=== PATIENT | male | born 1960 | race Caucasian/White ===

== ENCOUNTER 2017-12-03 17:22 | Emergency (ER) | payer MEDICARE, MEDICAID ==
[2017-12-03] MEDS ORDERED: Lidocaine Viscous Sol 2% 15 ml UD Cup ONE (17:44)
[2017-12-03] MEDS ORDERED: Pantoprazole 40 MG VIAL ONE (17:44)
[2017-12-03] MEDS ORDERED: Mag-Al 1200 mg/1200 mg/30 ML UDCUP ONE (17:44)
[2017-12-03 18:24] LABS: #Basophils 0.1 thou/uL (0.0-0.2); #Eosinphils 0.1 thou/uL (0.0-0.7); #Lymphocytes 2.9 thou/uL (1.20-3.40); #Neutrophils 5.2 thou/uL (1.40-6.50); %Basophils 1.2 % (0.0-1.0); %Eosinophils 1.4 % (0.0-10.0); %Lymphocytes 30.8 % (21.0-51.0); %Monocytes 10.8 % (0.0-10.0); %Neutrophils 55.8 % (42.0-75.0); Hemoglobin 17.1 g/dL (14.0-18.0); Mean Corpuscular HGB CONC 33.2 g/dL (32.0-36.0); Mean Corpuscular Hemoglobin 31.6 pg (27.0-31.0); Mean Corpuscular Volume 95.1 fl (80.0-94.0); Mean Platelet Volume 9.1 fL (7.4-10.4); Platelet Count 174 thou/uL (130-400); RBC Distribution Width 12.8 % (11.5-14.5); Red Blood Cell (RBC) Count 5.42 mill/uL (4.70-6.10); White Blood Cell (WBC) Count 9.4 thou/uL (4.8-10.8)
--- NOTE | 2017-12-03 18:38 | RAD ---
PORTABLE UPRIGHT FRONTAL CHEST RADIOGRAPH 12/03/17 COMPARISON: 11/25/14 HISTORY: Burning in epigastric region, headache, chest pain. FINDINGS: No pneumothorax, pleural fluid, focal consolidation, or alveolar edema. Mild diffuse mild nonspecific interstitial prominence noted. IMPRESSION: No acute findings. POS: [facility]
[2017-12-03 18:41] LABS: CKMB 1.1 ng/mL (0-6.6); Troponin I 0.021 ng/mL (< 0.028)
[2017-12-03 18:46] LABS: ALT (SGPT) 32 U/L (8-55); AST (SGOT) 17 U/L (5-34); Albumin 4.3 g/dL (3.5-5.0); Alkaline Phosphatase 74 U/L (40-150); Anion Gap 16 mmol/L (10-20); BUN (Urea Nitrogen) 11 mg/dL (8.4-25.7); Bilirubin, Total 0.4 mg/dL (0.2-1.2); CK (CPK) 100 U/L (30-200); Calc. Creatinine Clearance 0 mL/min (70-130); Calcium 9.5 mg/dL (7.8-10.44); Carbon Dioxide 24 mmol/L (22-29); Chloride 106 mmol/L (98-107); Estimated GFR-MDRD Greater than 90; Glucose 125 mg/dL (70-105); Lipase 13 U/L (8-78); Potassium 4.1 mmol/L (3.5-5.1); Protein, Total 7.3 g/dL (6.0-8.3); Sodium 142 mmol/L (136-145)
== END 2017-12-03 19:09 | disposition home or self-care (01) ==
LOC: ERS 17:22
DX: R10.13 Epigastric pain (principal); E78.5 Hyperlipidemia, unspecified; I25.2 Old myocardial infarction; I10 Essential (primary) hypertension; F17.210 Nicotine dependence, cigarettes, uncomplicated; Z86.73 Personal history of transient ischemic attack (TIA), and cerebral infarction without residual deficits; Z79.899 Other long term (current) drug therapy
CPT/HCPCS: 71045; 80053; 82550; 82553; 83690; 84484; 85025; 93005; C9113

== ENCOUNTER 2017-12-03 20:24 | Emergency (ER) | payer MEDICARE, MEDICAID ==
[2017-12-03] MEDS ORDERED: Lidocaine Viscous Sol 2% 15 ml UD Cup ONE (20:57)
[2017-12-03] MEDS ORDERED: Metoclopramide HCl 10 MG TAB ONE (20:57)
[2017-12-03] MEDS ORDERED: Mag-Al 1200 mg/1200 mg/30 ML UDCUP ONE (20:57)
== END 2017-12-03 22:28 | disposition home or self-care (01) ==
LOC: ERS 20:24
DX: R10.13 Epigastric pain (principal); I10 Essential (primary) hypertension; E78.5 Hyperlipidemia, unspecified; I25.2 Old myocardial infarction; F17.210 Nicotine dependence, cigarettes, uncomplicated; Z86.73 Personal history of transient ischemic attack (TIA), and cerebral infarction without residual deficits; Z79.899 Other long term (current) drug therapy
CPT/HCPCS: 71045; 80053; 82550; 82553; 83690; 84484; 85025; 93005; 96374; C9113

== ENCOUNTER 2018-02-12 04:53 | Inpatient (IN) | payer MEDICARE, MEDICAID ==
[2018-02-12 05:24] LABS: #Basophils 0.1 thou/uL (0.0-0.2); #Eosinphils 0.1 thou/uL (0.0-0.7); #Lymphocytes 2.3 thou/uL (1.20-3.40); #Monocytes 0.9 thou/uL (0.11-0.59); #Neutrophils 5.6 thou/uL (1.40-6.50); %Basophils 0.9 % (0.0-1.0); %Lymphocytes 25.5 % (21.0-51.0); %Monocytes 10.2 % (0.0-10.0); %Neutrophils 62.5 % (42.0-75.0); Hemoglobin 14.7 g/dL (14.0-18.0); Mean Corpuscular HGB CONC 34.5 g/dL (32.0-36.0); Mean Corpuscular Hemoglobin 32.4 pg (27.0-31.0); Mean Corpuscular Volume 93.8 fL (78.0-98.0); Mean Platelet Volume 8.7 fL (7.4-10.4); Platelet Count 183 thou/uL (130-400); RBC Distribution Width 13.4 % (11.5-14.5); Red Blood Cell (RBC) Count 4.52 mill/uL (4.70-6.10)
[2018-02-12 05:36] LABS: ALT (SGPT) 21 U/L (8-55); AST (SGOT) 13 U/L (5-34); Albumin 3.8 g/dL (3.5-5.0); Alkaline Phosphatase 66 U/L (40-150); Anion Gap 13 mmol/L (10-20); BUN (Urea Nitrogen) 12 mg/dL (8.4-25.7); Bilirubin, Total 0.3 mg/dL (0.2-1.2); Calc. Creatinine Clearance 0 mL/min (70-130); Carbon Dioxide 24 mmol/L (22-29); Chloride 107 mmol/L (98-107); Estimated GFR-MDRD Greater than 90; Globulin 2.8 g/dL (2.4-3.5); Glucose 144 mg/dL (70-105); Lipase 14 U/L (8-78); Potassium 3.5 mmol/L (3.5-5.1); Protein, Total 6.6 g/dL (6.0-8.3); Sodium 140 mmol/L (136-145)
[2018-02-12 05:41] LABS: CKMB 0.7 ng/mL (0-6.6); Troponin I 0.015 ng/mL (< 0.028)
[2018-02-12] MEDS ORDERED: Acetaminophen 325 MG TAB PO PRN (07:56)
[2018-02-12 08:53] LABS: Troponin I 0.018 ng/mL (< 0.028)
--- NOTE | 2018-02-12 09:10 | CT ---
PRELIMINARY REPORT/[facility]/EMERGENTY AFTER-HOURS PROCEDURE CT Head Without Intravenous Contrast CLINICAL HISTORY: 57 years old, male; Signs and symptoms; Dizziness; Patient HX: Ems reports dizziness and SHORTNESS OF BREATH that woke pt up this am. Pt currently in nad, rr even and unlabored. TECHNIQUE: Axial computed tomography images of the head/brain without intravenous contrast. COMPARISON: No relevant prior studies available. FINDINGS: Brain: No intracranial hemorrhage. No evidence of acute infarction. No mass effect or midline shift. Ventricles: Normal for age. Bones/joints: No acute fracture. Soft tissues: Normal. Vasculature: Atherosclerosis. Sinuses: Normal as visualized. No acute sinusitis. Mastoid air cells: Normal as visualized. No mastoid effusion. IMPRESSION: No acute intracranial abnormality. Thank you for allowing us to participate in the care of your patient. Dictated and Authenticated by: Adolfo Mccabe MD 02/12/2018 6:01 AM Central Time ([place] & [place]) FINAL REPORT CT HEAD: No acute intracranial abnormality. I am in agreement with the preliminary report. POS: [facility]
--- NOTE | 2018-02-12 09:21 | RAD ---
PORTABLE CHEST: HISTORY: Dizziness. Shortness of breath. FINDINGS: Lungs are clear. Heart and mediastinum unremarkable. No acute abnormality. POS: [facility]
[2018-02-12] MEDS ORDERED: Ondansetron HCl/PF 4 MG/2 ML Vial IVP PRN (10:01)
[2018-02-12] MEDS ORDERED: Ondansetron ODT 4 MG TAB SL PRN (10:01)
[2018-02-12 10:04] VITALS: BMI 31.9
[2018-02-12 12:49] LABS: Troponin I 0.012 ng/mL (< 0.028)
--- NOTE | 2018-02-12 13:12 | HP ---
CHIEF COMPLAINT: Lightheadedness. HISTORY OF PRESENT ILLNESS: The patient is a 57-year-old male, who presented to the Emergency Depart [facility]. The patient reports that he was in generally good health until about 3:00 in the morning on day of admission. The patient reports that he awakened from sleep, feeling very lightheaded and sh aky. He got up on the side of the bed and rested for about 15 minutes. He had some initial shortnes s of breath that he states generally resolved with taking several deep breaths. When his overall sym ptoms did not resolve within 15 minutes, he called an ambulance. The patient reports that with time his lightheadedness and dizziness have improved, but he still feels weak. He feels less shaky. Stat es he has had this before, but it has been somewhere between 2-4 years ago. He states that if he act ually goes out into the heat and does much that he will blackout. He denied any chest pain or palpit ations. REVIEW OF SYSTEMS: The patient reports that he sleeps too much. States that he sleeps 8 hours at [facility], gets up in the morning and after a couple hours of being up he cannot keep his eyes open anymore and asked to go to bed and sleeps most of the day. Other than that, a 10-system review is unremarka ble. The patient does report that he has poor vision, poor hearing, and poor memory, but these are c hronic for him. PAST MEDICAL HISTORY: The patient reports a history of "borderline" diabetes. He also states that zarina liang was told he had hypertension and was given medications in the past, but his blood pressure got too low and he felt lightheaded, so he decided to stop them. Of note, the patient has been admitted here previously with some leg weakness concerning for the possibility of a TIA. He had a stress test don e in 2014, which revealed no evidence of ischemia, but he did have global hypokinesis with an EF of 4 3%. He also had workup for lower extremity vascular disease and he did have some minimal atheroscler otic disease. He had negative carotid Dopplers. PAST SURGICAL HISTORY: None. FAMILY HISTORY: The patient reports his father a week after having a 4-mustafa accident, but he is not sure why. States his father did have hypertension. His mother with coronary disease an d diabetes. He also had a sister that he reports secondary to an irregular heartbeat. SOCIAL HISTORY: The patient smokes 3 cigarettes per day, down from one half pack per day. He denies alcohol or drugs. He is single. He reports that his surrogate decision maker would be a cousin in [place], although he does not recall her last name. He will try to get that information for us. Zarina liang is a DNR. He is on disability and he relates his disability claim to poor hearing, poor vision, po or memory. ALLERGIES: None. MEDICATIONS: None. PHYSICAL EXAMINATION: VITAL SIGNS: BP 112/73, pulse 76, respirations 17, temperature is 98.6, and O2 sats 95% on room air. GENERAL APPEARANCE: Age appropriate male in no distress. He is awake, alert, oriented, pleasant, co operative, no distress. HEENT: PERRL. No OP lesions. NECK: Supple and symmetric. CARDIOVASCULAR: Regular rate and rhythm without murmurs, gallops or rubs. LUNGS: Reveal bibasilar rales, which are fine and good air exchange otherwise. ABDOMEN: Soft, nontender, nondistended, positive bowel sounds, no masses, no organomegaly. EXTREMITIES: Warm and dry with no evidence of peripheral edema. NEUROLOGIC: The patient appears to be grossly intact with no focal deficits. SKIN: Reveals no lesions. Chest x-ray appears generally clear with some mild chronic changes noted. LABORATORY DATA: Head CT is reportedly negative. EKG shows some anteroseptal evidence of old infarc t. There is some poor R-wave progression through the V leads and some minor evidence of ST segment elevation from V2 through V5, although not diagnostic. White count is 9.0, hemoglobin 14.7, platelet s 183. Sodium 140, potassium 3.5, chloride 107, CO2 of 24, anion gap 13, BUN 12, creatinine 0.83, gl ucose 144, calcium 9.0. LFTs normal. BNP 1.92, troponin 0.015. Lipase 14. IMPRESSION AND PLAN: 1. Lightheadedness. The etiology of this presently is unclear. It seems to be getting better. Cer tainly cardiac would be a concern as well as a something neurological. Of note, this patient has bee n seen in the emergency room for prior times since 2014 with complaints of dizziness or lightheadedne ss. He did have the workup in 2015 for leg numbness and potential transient ischemic attack, which t case he had no significant findings. 2. Cardiac: The patient has an abnormal EKG. He did have a negative stress test in 11/2014, but he had a reduced ejection fraction and global hypokinesis at that time based on his stress test. We wi ll place the patient in observation on telemetry. We will get serial cardiac enzymes. We will obtai n an echocardiogram. This case was discussed with Dr. Plaza, the ER physician with his recommenda tion that we keep the patient for further evaluation. We will consult Cardiology. 3. History of hypertension. We will continue to monitor the patient's vital signs in the hospital. They do not appear to be substantially bad at this point. 4. History of hyperlipidemia. We will check a fasting lipid panel in the morning. 5. Hyperglycemia. The patient's blood sugar was very slightly high, although it is not clear if thi s was fasting or nonfasting. We will check another fasting glucose in the morning.
[2018-02-12] MEDS ORDERED: Communication Order-Pharmacy FS SCH (21:00)
--- NOTE | 2018-02-13 00:12 | CON ---
DATE OF CONSULTATION: 02/12/2018 HISTORY: Reg Méndez is a 57-year-old white male who has been evaluated by Dr. Guerrero in the past. In 02/2011, he presented with chest discomfort. Echocardiogram revealed ejection fraction of 40% -45%. Cardiolite revealed no evidence of ischemia with an ejection fraction of 44%. He was again seen by Dr. Guerrero in 11/2014. Again, this was for chest discomfort that was present for 3 straight days. Pain was definitely pleuritic in nature. He again underwent Cardiolite testing , which did not reveal any evidence of ischemia and ejection fraction was 43% carvedilol, AMY i nhibitor, aspirin and medication. Apparently, he never took those. He did present to the emergency room on 12/03/2017, complaining of intense burning in his chest and e pigastric area. Cardiac enzymes were unremarkable. An EKG was normal. He was given by his account a green slider twice and he stated that the intense burning continued for 3 hours, then abated. He denies any recurrence of chest discomfort. Then, awoke at 3:00 a.m. this morning somewhat lighthe aded with difficulty breathing. He denied any chest discomfort. He was mildly diaphoretic and he fe lt so bad. He decided to come to the emergency room. There has been a dramatic change in his EKG. PAST MEDICAL HISTORY: Mild cardiomyopathy. OPERATIONS: None. MEDICATIONS: [place] and prednisone. ALLERGIES: None. SOCIAL HISTORY: He continued to smoke one half pack per day. However, he recently has cut back to 3 cigarettes per day. He denies any alcohol. FAMILY HISTORY: Mother had heart disease. REVIEW OF SYSTEMS: Twelve-point review of systems is otherwise unremarkable. PHYSICAL EXAMINATION: VITAL SIGNS: Blood pressure 116/74, pulse of 86. HEENT: PERRL. NECK: Supple. CHEST: Clear. CARDIAC: S1, S2 normal, without any S3, S4 or murmurs. ABDOMEN: Normal bowel sounds, without tenderness, organomegaly. EXTREMITIES: Revealed no clubbing, cyanosis. There was trace pretibial edema. NEUROLOGIC: Grossly intact. SKIN: Warm and dry. LABORATORY DATA: EKG reveals anteroseptal infarction with Q-waves present in V1 through V4 with inve rted T waves. These changes are new from EKG in November. Cardiac enzymes were unremarkable. White cou nt 9000, hemoglobin 14.7, hematocrit 42.4, platelets 183,000. Sodium 140, potassium 3.5, chloride 10 7, carbon dioxide 24, BUN 12, creatinine 0.83. BNP 192.0. IMPRESSION: 1. Anteroseptal myocardial infarction sometime between 12/03/2017 and now. 2. Lightheadedness and shortness of breath. This certainly may have been an episode of PND. 3. History of hypertension; however, blood pressure is low here. profile will be obtained in the morning. PLAN: Situation was discussed with the patient. With his dramatic changes in his EKG, it was recomm ended he undergo cardiac catheterization. Risks of catheterization were discussed with the patient i ncluding , myocardial infarction, dye reaction, vascular injury, CVA, transfusion, limb loss, re nal loss, etc. Risks of stent placement were discussed including , myocardial infarction, emerg ent CABG, restenosis, stent thrombosis, vessel perforation, etc. He has had history of bleeding stom ach ulcer and gastrointestinal bleeding 2-3 years ago and, therefore, it was felt that a bare metal s tent would be his best option. However, he is very hesitant and I am not certain that he will pursue further evaluation. We also discussed how he wishes to be DNR and if we do go to the cardiac Cath l ab that should be rescinded. He will make decisions now regarding how to proceed.
[2018-02-13 05:02] LABS: #Eosinphils 0.1 thou/uL (0.0-0.7); #Lymphocytes 3.1 thou/uL (1.20-3.40); #Monocytes 0.9 thou/uL (0.11-0.59); #Neutrophils 4.6 thou/uL (1.40-6.50); %Basophils 0.5 % (0.0-1.0); %Eosinophils 1.3 % (0.0-10.0); %Lymphocytes 35.2 % (21.0-51.0); %Monocytes 10.4 % (0.0-10.0); %Neutrophils 52.6 % (42.0-75.0); Hemoglobin 14.2 g/dL (14.0-18.0); Mean Corpuscular HGB CONC 32.6 g/dL (32.0-36.0); Mean Corpuscular Hemoglobin 30.7 pg (27.0-31.0); Mean Corpuscular Volume 94.1 fL (78.0-98.0); Mean Platelet Volume 9.2 fL (7.4-10.4); Platelet Count 179 thou/uL (130-400); RBC Distribution Width 13.3 % (11.5-14.5); Red Blood Cell (RBC) Count 4.61 mill/uL (4.70-6.10); White Blood Cell (WBC) Count 8.8 thou/uL (4.8-10.8)
[2018-02-13 05:06] LABS: Anion Gap 12 mmol/L (10-20); BUN (Urea Nitrogen) 11 mg/dL (8.4-25.7); Calc. Creatinine Clearance 154 mL/min (70-130); Calcium 8.6 mg/dL (7.8-10.44); Carbon Dioxide 26 mmol/L (22-29); Cardiac Risk 5.4 (Less than 4.5); Chloride 106 mmol/L (98-107); Cholesterol 163 mg/dl (< 200 Desired); Estimated GFR-MDRD Greater than 90; Glucose 133 mg/dL (70-105); HDL Cholesterol 30 mg/dL (>60 Neg Risk); LDL Cholesterol, Calculated 104 mg/dL; Potassium 3.7 mmol/L (3.5-5.1); Sodium 140 mmol/L (136-145); Triglycerides 144 mg/dL (Less than 150)
[2018-02-13] MEDS: Sodium Chloride 0.9% 1,000 ML IV SCH ×2 (05:12→16:25)
--- NOTE | 2018-02-13 09:33 | PDOC.PN ---
- Subjective Encounter Start Date: 02/13/18 Encounter Start Time: 09:32 No new symptoms. Had declined cath. Wants to consult with his family in [place]. - Objective Resuscitation Status: Resuscitation Status DNR:Do Not Resuscitate Vital Signs & Weight: Vital Signs (12 hours) Temp Pulse Resp BP Pulse Ox 02/13/18 08:00 98.3 F 82 14 118/77 96 02/13/18 04:30 98.2 F 85 16 114/73 96 Weight Weight 249 lb 11.2 oz I&O: 02/12/18 02/13/18 02/14/18 06:59 06:59 06:59 Intake Total 800 Output Total 300 Balance 500 Result Diagrams: 02/13/18 04:25 02/13/18 04:25 Phys Exam - Physical Examination Constitutional: NAD Respiratory: no wheezing, no rales, no rhonchi, clear to auscultation bilateral Cardiovascular: RRR, no significant murmur, no rub Gastrointestinal: soft, non-tender, no distention, positive bowel sounds Musculoskeletal: no edema Dx/Plan (1) Chest pain Code(s): R07.9 - CHEST PAIN, UNSPECIFIED Status: Acute (2) Abnormal EKG Code(s): R94.31 - ABNORMAL ELECTROCARDIOGRAM [ECG] [EKG] Status: Acute (3) Lightheadedness Code(s): R42 - DIZZINESS AND GIDDINESS Status: Acute (4) Hypertension Code(s): I10 - ESSENTIAL (PRIMARY) HYPERTENSION Status: Acute (5) Hyperlipidemia Code(s): E78.5 - HYPERLIPIDEMIA, UNSPECIFIED Status: Acute - Plan * Cath recommended by Cards. Patient has declined. No utility in a stress test given the EKG changes. Negative would not be trusted and positive brings us back to him declining a cath. Will rechech trop (not done). Says he did not tolerate antihypertensives in the past. Made his BP too low. Cholesterol today is not terrible. Await Cards recs.
[2018-02-13 10:29] LABS: Troponin I 0.012 ng/mL (< 0.028)
[2018-02-13] MEDS ORDERED: Aspirin 325 mg Enteric Coated Tablet PO SCH ×2 (12:45→13:00)
[2018-02-13] MEDS: Carvedilol 3.125 MG TAB PO SCH (16:29)
[2018-02-13] MEDS: Atorvastatin Calcium 40 MG TAB PO SCH (19:59)
[2018-02-13] MEDS ORDERED: Atorvastatin Calcium 40 MG TAB PO SCH (21:00)
[2018-02-14] MEDS: Lisinopril 2.5 MG TAB PO SCH ×3 (09:52→12:30)
[2018-02-14] MEDS: Carvedilol 3.125 MG TAB PO SCH ×2 (09:52→18:31)
[2018-02-14] MEDS: Aspirin 325 mg Enteric Coated Tablet PO SCH (09:52)
--- NOTE | 2018-02-14 10:56 | PDOC.PN ---
- Subjective Encounter Start Date: 02/14/18 Encounter Start Time: 10:52 Feels ok. No complaints. Feels like he understands the scenario well. - Objective Resuscitation Status: Resuscitation Status FULL:Full Resuscitation Vital Signs & Weight: Vital Signs (12 hours) Temp Pulse Resp BP Pulse Ox 02/14/18 10:00 75 02/14/18 07:23 97.8 F 75 17 103/69 94 L 02/14/18 03:14 97.9 F 74 12 99/59 L 94 L Weight Weight 245 lb I&O: 02/13/18 02/14/18 02/15/18 06:59 06:59 06:59 Intake Total 800 1080 Output Total 300 Balance 500 1080 Result Diagrams: 02/13/18 04:25 02/13/18 04:25 Phys Exam - Physical Examination Constitutional: NAD Neck: no nodes, no JVD Respiratory: no wheezing, no rales, no rhonchi, clear to auscultation bilateral Cardiovascular: RRR, no significant murmur Gastrointestinal: soft, non-tender, no distention Musculoskeletal: no edema Dx/Plan (1) Chest pain Code(s): R07.9 - CHEST PAIN, UNSPECIFIED Status: Acute (2) Abnormal EKG Code(s): R94.31 - ABNORMAL ELECTROCARDIOGRAM [ECG] [EKG] Status: Acute (3) Lightheadedness Code(s): R42 - DIZZINESS AND GIDDINESS Status: Acute (4) Hypertension Code(s): I10 - ESSENTIAL (PRIMARY) HYPERTENSION Status: Ruled-out (5) Hyperlipidemia Code(s): E78.5 - HYPERLIPIDEMIA, UNSPECIFIED Status: Acute (6) Cardiomyopathy Code(s): I42.9 - CARDIOMYOPATHY, UNSPECIFIED Status: Acute - Plan * Declined cath. Has cardiomyopathy with EF 20-25%. Likely ischemic, but declines cath. Trying to treat medically with Coreg and ACEI, but his BP is borderline low. Spacing it out through the day. Life Vest pending. If tolerates meds and gets Life Vest, can DC tomorrow.
[2018-02-14] MEDS: Atorvastatin Calcium 40 MG TAB PO SCH (20:13)
[2018-02-15 07:58] VITALS: TEMP 98.1
[2018-02-15] MEDS: Carvedilol 3.125 MG TAB PO SCH (07:58)
[2018-02-15] MEDS: Aspirin 325 mg Enteric Coated Tablet PO SCH (07:58)
[2018-02-15 11:40] VITALS: BP 116/74
[2018-02-15] MEDS: Lisinopril 2.5 MG TAB PO SCH (11:41)
--- NOTE | 2018-02-16 13:38 | EKG ---
Test Reason : Blood Pressure : / mmHG Vent. Rate : 097 BPM Atrial Rate : 097 BPM P-R Int : 166 ms QRS Dur : 088 ms QT Int : 376 ms P-R-T Axes : 054 101 115 degrees QTc Int : 477 ms Normal sinus rhythm Rightward axis T wave abnormality, consider lateral ischemia Abnormal ECG Confirmed by JOSE KEITH M.D. ([id number]), clinical editor IGNACIO DANG ([id number] on 02/16/2018 1:38:30 PM Referred By: Confirmed By:JOSE KEITH M.D.
--- NOTE | 2018-02-16 13:39 | EKG ---
Test Reason : Blood Pressure : / mmHG Vent. Rate : 091 BPM Atrial Rate : 091 BPM P-R Int : 170 ms QRS Dur : 102 ms QT Int : 388 ms P-R-T Axes : 062 078 115 degrees QTc Int : 477 ms Sinus rhythm and Premature ventricular complexes or Fusion complexes Anteroseptal infarct , age undetermined T wave abnormality, consider lateral ischemia Abnormal ECG No changes Confirmed by INNA Vallejo, JOSE ([id number]), multimedia editor IGNACIO DANG ([id number]) on 02/16/2018 1:38:48 PM Referred By: Confirmed By:JOSE KEITH M.D.
--- NOTE | 2018-02-16 15:19 | DIS ---
DATE OF ADMISSION: 02/12/2018 DATE OF DISCHARGE: 02/15/2018 DISCHARGE DIAGNOSES: 1. Chest pain. 2. Abnormal electrocardiogram. 3. Lightheadedness. 4. Cardiomyopathy with ejection fraction 20%-25%. 5. Hypertension. 6. Hyperlipidemia. HISTORY: This patient is a 57-year-old male who presented via the emergency department complaining o f some chest discomfort and lightheadedness. The patient reported that he had had some of these type s of episodes in the past. His troponins were negative, but his EKG showed some R-wave progression i ssues and some other anterior nonspecific findings. Cardiology was called and recommended the patien t be admitted for further workup. HOSPITAL COURSE: The patient was admitted to the hospital and seen by Cardiology. He underwent an e chocardiogram which revealed an EF of 25%-30% and some evidence of diastolic dysfunction. Heart cath eterization was recommended; however, the patient did not want to undergo a heart catheterization. T herefore, he was managed medically. He had a LifeVest ordered which ultimately was placed and the teri aby was admitted. He was started on low dose Coreg and lisinopril. The patient had been placed on blood pressure medication in the past he stated but he did not tolerate them because his blood press ure runs too low in general. That was somewhat the case with this visit as well as his blood pressur e did remain on the low side of normal. He was able to tolerate Coreg 3.125 with morning and evening meals, and 2.5 of lisinopril with the midday meal. Once it was clear, he tolerated those and have a LifeVest in place. Once educated on his medical issues, he was felt to be stable for discharge to [facility]. PHYSICAL EXAMINATION: VITAL SIGNS: On the day of discharge, temperature is 98.1, pulse 80, BP 116/74, respirations 16, O2 sat 95% on room air. GENERAL: The patient is actually healthy appearing male in no distress. HEART: Regular, without murmur. LUNGS: Clear bilaterally. ABDOMEN: Soft, nontender, nondistended with positive bowel sounds. EXTREMITIES: Warm and dry without edema. DISPOSITION: The patient is discharged to home. ACTIVITY: As tolerated. DIET: He is to be on low sodium, heart healthy diet. DISCHARGE MEDICATIONS: He will be on aspirin 325 mg daily, Lipitor 40 mg p.o. at bedtime, Coreg 3.12 5 with his morning and evening meal and lisinopril 2.5 mg with his noon meal. He is to follow up ashwin Mendoza, his PCP, in [place] as well as Dr. Guerrero in 2-3 weeks. He should return to the em ergency department should he have any problems prior to that time.
== END 2018-02-15 15:05 | disposition home or self-care (01) | DRG 316 ==
LOC: ERS 04:53 → ERHOLD 07:43 → INTOOBSV 07:43 → 2SW 09:48 → OBSVTOIN 02-13 12:50 → 2NO 02-14 17:04
PROVIDERS: ADMIT Internal Medicine Infectious Disease; ATTEND Internal Medicine Infectious Disease
DX: I42.9 Cardiomyopathy, unspecified (principal); R42 Dizziness and giddiness; I10 Essential (primary) hypertension; E78.5 Hyperlipidemia, unspecified; R94.31 Abnormal electrocardiogram [ECG] [EKG]; R73.03 Prediabetes
CPT/HCPCS: 36415; 70450; 71045; 80048; 80053; 80061; 82553; 83690; 83880; 84484; 85025; 93005; 93306; 96360; A4216

== ENCOUNTER 2021-07-12 15:14 | Emergency (ER) | payer MEDICARE, MEDICAID ==
[2021-07-12 16:02] LABS: #Basophils 0.1 thou/uL (0.0-0.2); #Eosinphils 0.1 thou/uL (0.0-0.7); #Lymphocytes 3.1 thou/uL (1.20-3.40); #Monocytes 0.9 thou/uL (0.11-0.59); #Neutrophils 3.9 thou/uL (1.40-6.50); %Basophils 0.6 % (0.0-1.0); %Eosinophils 1.8 % (0.0-10.0); %Lymphocytes 38.3 % (21.0-51.0); %Monocytes 10.8 % (0.0-10.0); %Neutrophils 48.4 % (42.0-75.0); Hemoglobin 16.2 g/dL (14.0-18.0); Mean Corpuscular HGB CONC 32.4 g/dL (32.0-36.0); Mean Corpuscular Hemoglobin 31.7 pg (27.0-31.0); Mean Corpuscular Volume 97.7 fL (78.0-98.0); Mean Platelet Volume 9.2 fL (7.4-10.4); Platelet Count 191 thou/uL (130-400); RBC Distribution Width 12.8 % (11.5-14.5); Red Blood Cell (RBC) Count 5.12 mill/uL (4.70-6.10); White Blood Cell (WBC) Count 8.1 thou/uL (4.8-10.8)
[2021-07-12 16:24] LABS: ALT (SGPT) 19 U/L (8-55); AST (SGOT) 14 U/L (5-34); Albumin 4.3 g/dL (3.5-5.0); Alkaline Phosphatase 61 U/L (40-110); Anion Gap 13 mmol/L (10-20); BUN (Urea Nitrogen) 15 mg/dL (8.4-25.7); Bilirubin, Total 0.4 mg/dL (0.2-1.2); Calc. Creatinine Clearance 0 mL/min (70-130); Calcium 9.3 mg/dL (7.8-10.44); Carbon Dioxide 24 mmol/L (22-29); Chloride 105 mmol/L (98-107); Glucose 161 mg/dL (70-105); Potassium 4.1 mmol/L (3.5-5.1); Protein, Total 7.3 g/dL (6.0-8.3); Sodium 138 mmol/L (136-145)
[2021-07-12 17:51] LABS: Bilirubin Negative (Negative); Blood, Urine Negative (Negative); Glucose, Urine (Dipstick) 250 mg/dL (Negative); Ketone, Urine Negative (Negative); Leukocyte Negative (Negative); Nitrite Negative (Negative); Protein, Urine (Dipstick) Negative (Neg-Trace); Urobilinogen 0.2 mg/dL (Less than 2)
[2021-07-12 18:02] LABS: Clarity Clear (Clear); RBC/HPF 0-3 HPF (0-3); Specific Gravity, Urine 1.025 (1.002-1.036); WBC/HPF 0-3 HPF (0-3)
== END 2021-07-12 17:36 | disposition home or self-care (01) ==
LOC: ERS 15:14
DX: R55 Syncope and collapse (principal); I10 Essential (primary) hypertension; E78.00 Pure hypercholesterolemia, unspecified; I25.2 Old myocardial infarction; F17.210 Nicotine dependence, cigarettes, uncomplicated
CPT/HCPCS: 36415; 71045; 80053; 81003; 84484; 85025; 93005